=== PATIENT | female | born 1985 | race Caucasian/White ===

== ENCOUNTER 2017-03-09 15:49 | Inpatient (IN) | payer OTHER ==
[~2017-03-09] VITALS: Ht 170.2 cm; Wt 80.5 kg
[2017-03-20] VITALS (21 sets, daily range): BP systolic 104–130; BP diastolic 54–71; PULSE 62–111; TEMP 97.6–98.6
[2017-03-20] MEDS ORDERED: PRENATAL MVI (07:34)
[2017-03-20 07:45] LABS: BASO % 0.2 % (0.0-2.0); EOS # 0.1 (0.0-0.7); EOS % 1.1 % (0-4.0); GRAN # 6.3 (1.4-6.5); GRAN % 67.5 % (42.2-75.2); HEMOGLOBIN 12.6 g/dl (12.5-16.0); LYMPH # 2.4 (1.2-3.4); LYMPH % 25.5 % (20.0-51.0); MEAN CELL VOLUME 93 fl (80.0-100.0); MEAN CORPUSCULAR HEMOGLOBIN 32 pg (27.0-31.0); MEAN CORPUSCULAR HGB CONC 35 g/dl (33.0-37.0); MEAN PLATELET VOLUME 10.6 fl (7.4-10.4); MONO # 0.5 (0.1-0.6); MONO % 5.1 % (1.7-9.3); PLATELET COUNT 182 K/mm3 (130-400); RED BLOOD COUNT 3.94 M/mm3 (4.10-5.30); REDCELL DISTRIBUTION WIDTH-CV 14.2 % (11.5-14.5); WHITE BLOOD COUNT 9.4 K/mm3 (4.8-10.8)
[2017-03-20 07:49] LABS: HEMATOCRIT 36.5 % (37.0-47.0)
[2017-03-21 00:29] VITALS: BP 97/56; PULSE 58; TEMP 98
[2017-03-21 04:10] VITALS: BP 108/59; PULSE 57; TEMP 97.6
[2017-03-21 07:59] VITALS: BP 109/51; PULSE 64; TEMP 97.4
[2017-03-21 17:00] VITALS: BP 107/67; PULSE 60; TEMP 97.9
[2017-03-21 21:00] VITALS: BP 105/62; PULSE 70; TEMP 97.6
[2017-03-22 10:00] VITALS: BP 104/61; PULSE 74; TEMP 98.4
== END 2017-03-22 11:20 | disposition home or self-care (01) | DRG 775 ==
LOC: LDR 03-20 07:16 → OB 03-20 07:16 → LDR 03-20 10:54 → OB 03-20 13:30 → EDSTATUS 03-27 10:28 → LDR 03-27 10:31 → LDRO 03-27 15:31
PROVIDERS: Student in an Organized Health Care Education/Training Program
PROC: 10E0XZZ Delivery of Products of Conception, External Approach (ICD-10-PCS; principal; 2017-03-20)
PROC: 0KQM0ZZ Repair Perineum Muscle, Open Approach (ICD-10-PCS; 2017-03-20)
PROC: 3E033VJ Introduction of Other Hormone into Peripheral Vein, Percutaneous Approach (ICD-10-PCS; 2017-03-20)
DX: O62.3 Precipitate labor (principal); O26.843 Uterine size-date discrepancy, third trimester; O70.1 Second degree perineal laceration during delivery; O69.81X0 Labor and delivery complicated by cord around neck, without compression, not applicable or unspecified; Z3A.39 39 weeks gestation of pregnancy; Z37.0 Single live birth
CPT/HCPCS: J2590; J7120

== ENCOUNTER 2019-02-14 07:23 | Inpatient (IN) | payer OTHER ==
[~2019-02-14] VITALS: Ht 170.2 cm; Wt 85.5 kg
[2019-02-14] VITALS (39 sets, daily range): BP systolic 84–133; BP diastolic 46–75; PULSE 64–123; TEMP 98–98.6
[~2019-02-14 07:23] MED LIST: LOTRIMIN1% TP; PRENATAL MVI; TUMS500 MG; ZANTAC 7575 MG PO
--- NOTE | 2019-02-14 07:23 | NUR ---
Dr. Cabrera called unit to update RN on plan of care for patient. Made MD aware patient not yet to unit. See physician notification.
--- NOTE | 2019-02-14 07:28 | NUR ---
0728-G5L3 39[address] Barragan[address] ambulatory to LR5 for induction of labor. Assisted into gown and placed on EFM. 0742-IV to left wrist on first attempt, blood collected for lab, LR started. Patient states "I feel lightheaded." Head of bed back, Fan on, IVF bolus started. Cool wrag to forehead. Patient remains A&O x4. 0746-BP 81/46 maternal HR 67. IVF bolus continues. Assessment complete. 0753-BP 88/52 maternal HR 86. FHR remains reactive, no decels. FHR baseline 150bpm moderate variability. 0800-Consents reviewed and signed. Updated on plan of care.
[2019-02-14 08:48] LABS: BASO % 0.2 % (0.0-2.0); EOS # 0.1 (0.0-0.7); EOS % 0.9 % (0-4.0); GRAN # 8.5 (1.4-6.5); GRAN % 73.3 % (42.2-75.2); HEMOGLOBIN 12.3 g/dl (12.5-16.0); LYMPH # 2.4 (1.2-3.4); LYMPH % 20.3 % (20.0-51.0); MEAN CELL VOLUME 91 fl (80.0-100.0); MEAN CORPUSCULAR HEMOGLOBIN 30 pg (27.0-31.0); MEAN CORPUSCULAR HGB CONC 33 g/dl (33.0-37.0); MEAN PLATELET VOLUME 11.5 fl (7.4-10.4); MONO # 0.6 (0.1-0.6); MONO % 4.8 % (1.7-9.3); PLATELET COUNT 253 K/mm3 (130-400); RED BLOOD COUNT 4.06 M/mm3 (4.10-5.30); REDCELL DISTRIBUTION WIDTH-CV 14.3 % (11.5-14.5)
--- NOTE | 2019-02-14 08:50 | NUR ---
0850-Dr. Cabrera to patient room. Updates patient on plan of care. 0851-SVE 4-/-2 by . 0852-AROM by clear fluid noted.
--- NOTE | 2019-02-14 09:14 | NUR ---
0914-Patient of [facility] at this time and up to BB.
--- NOTE | 2019-02-14 10:23 | NUR ---
1023-Patient back on efm on BB. Reports mild irregular contractions while ambulating.
--- NOTE | 2019-02-14 10:48 | NUR ---
1048-Patient off EFM, on BB at this time.
--- NOTE | 2019-02-14 11:17 | NUR ---
1117-Dopplered patient at bedside to test EFM system.
--- NOTE | 2019-02-14 11:25 | NUR ---
1125-patient out to halls to ambulate.
--- NOTE | 2019-02-14 11:36 | NUR ---
1136-Patient back to BB, EFM in place, reactive FHR, maternal VSS, see flow record. 1140-adjust EFM.
--- NOTE | 2019-02-14 12:50 | NUR ---
1250-Dr. Cabrera on unit. Reviews strip. 1254-SVE by , Reviews plan of care with MD. Requests epidural and augmentation with pitocin once comfortable. Sylvain-JOSE Tinoco notified.
--- NOTE | 2019-02-14 13:20 | NUR ---
1320-Earnest in room. Patient sitting upright on bedside. Timeout complete. 1329-SS administered by Calixto Pacheco CRNA. VSS, see flow record. Patient denies symptoms or reaction or side effects. 1338-Patient WL. Updated on safety and side effects. 1351-Dr. Joiner updated, see physician notification. 1356-maternal BP 100/53, maternal HR 92 patient reports "I feel a little lightheaded." 10mg ephedrine given per protocola and orders from JOSE Tinoco. 1400-Pitocin per MD order and protocol, see EMAR. 1404-Patient BP 113/58 maternal HR 80. Denies symptoms of lightheadedness.
--- NOTE | 2019-02-14 14:20 | NUR ---
1420-Stone to DD, clear yellow urine return. SVE /-1, 1423-Dr. Tyson nurse Ayanna,TONYA updated, see physician notification.
--- NOTE | 2019-02-14 15:49 | NUR ---
1549-Deep Variable decel in FHR downt to 80bpm. Repositoned WL with peanut. 1552-Variable decel down to 95bpm. SVE 8/100/0, bloody show noted. Repositioned WR with peanut ball. 1602-Dr. Tyson nurse updated on patient, see physician notification.
--- NOTE | 2019-02-14 16:30 | NUR ---
1630-SVE C/+2. Updated patient on plan of care. 1633-Dr. Cabrera notified of patient C/+2, Stone d/c 350ml clear yellow urine. Set up for delivery. 1640-Dr. Cabrera to patient room. 1642-Patient begins pushing with MD at bedside through contraction. 1645-Spontaneous delivery of head, patient pushes additional push and immediately body follows. Viable male mouth and nose bulb suctioned by MD and placed on mothers abodmen. Cord clamped x2 and cut by FOB. Care of infant assumed by Fritz,RN nursery nurse. Apgars 8/9/9. 1st degre midline perineal laceration repaired by Dr. Cabrera. 1653-Spontaneous delivery of intact placenta by MD. Fundal massage firm. Lochia WNL, EBL 250ml. Pitocin bolus per MD orders and protocol. Eve care provided. Repositioned and updated on recovery plan of care.
[2019-02-15] VITALS: BP 106/44; PULSE 71; TEMP 97.9
[2019-02-15 05:15] VITALS: BP 101/63; PULSE 84; TEMP 98.1
[2019-02-15] MEDS ORDERED: IBU800 M1 PO (08:50)
[2019-02-15 09:15] VITALS: BP 104/60; PULSE 82; TEMP 97.6
--- NOTE | 2019-02-15 10:29 | NUR ---
Initial visit; Father thanked Security Lead for offering congratulations and God's blessings for the of his son. Mom was indisposed. Security Lead thanked family for choosing our hospital.
[2019-02-15 13:20] VITALS: BP 106/66; PULSE 89; TEMP 98.7
== END 2019-02-15 18:10 | disposition home or self-care (01) | DRG 807 ==
LOC: LDR 07:23 → OB 07:23 → LDR 11:37 → OB 23:25
PROVIDERS: ADMIT Student in an Organized Health Care Education/Training Program
PROC: 10E0XZZ Delivery of Products of Conception, External Approach (ICD-10-PCS; principal; 2019-02-14)
PROC: 0HQ9XZZ Repair Perineum Skin, External Approach (ICD-10-PCS; 2019-02-14)
PROC: 10907ZC Drainage of Amniotic Fluid, Therapeutic from Products of Conception, Via Natural or Artificial Opening (ICD-10-PCS; 2019-02-14)
PROC: 3E033VJ Introduction of Other Hormone into Peripheral Vein, Percutaneous Approach (ICD-10-PCS; 2019-02-14)
DX: O99.62 Diseases of the digestive system complicating childbirth (principal); Z37.0 Single live birth; O70.0 First degree perineal laceration during delivery; K21.9 Gastro-esophageal reflux disease without esophagitis; Z3A.39 39 weeks gestation of pregnancy; Z85.828 Personal history of other malignant neoplasm of skin
CPT/HCPCS: J2590; J2795; J7120

== ENCOUNTER → 2019-02-20 | Outpatient (CLI) | payer OTHER ==
[~2019-02-20] MED LIST changes: +IBU800 M1 PO
--- NOTE | 2019-02-20 13:50 | NUR ---
PT, Zoe Lowry, presents to walk-in clinic with six day old baby boy, Corey Lowry ([place]), for a evaluation and to be evaluated for yeast on the right nipple. Kostas was born on 02/14[birth year] and is Zeo's fourth baby. She has successfully breastfed her other kids. Pt was recently seen by a demolition specialist and diagnosed with a yeast infection on her chest in the cleavage area. She is currently using clotrimazole cream to the area BID, but does not feel it has made much difference. She denies it is itchy. She does have nipple pain on the right side and wants help evaluating if it is from poor latching or yeast. Redness noted to the areaola, latch looks appropriate and she denies pain with the feeding, but after the nipples hurt. Because of the redness and diagnosis of yeast, she is advised to contact Dr. Cabrera and discuss option for Klein's Nipple Cream. Pt is familiar with this medication and has used it in the past. Handouts regarding management of yeast sent to pt via email. After Kostas has a total weight gain of 1.76oz. POC: Contact Dr. Cabrera re: Klein's nipple Cream. Breastfeed ad ramona. F/U: Walk in clinic as desired. Questions invited and answered.
== END ==
LOC: OLC 10:49
DX: Z39.1 Encounter for care and examination of lactating mother (principal); Z71.89 Other specified counseling

== ENCOUNTER → 2019-03-06 | Outpatient (CLI) | payer OTHER ==
--- NOTE | 2019-03-06 11:27 | NUR ---
Pt, Zoe Lowry, present to walk-in clinic with three week old baby boy, "Arti Lowry to be evaluated for yeast of the nipples. Zoe has been Kostas without difficulty and she declines a weight check or at this time. Kostas does not appear to have any spots in his mouth or tongue that would be thrush as all white spots wipe away, with the exception of one on the roof of his mouth that is likely an Epstien Lorena. Pt has errythemia covering the entire areola bilaterally. She has been using Klein's Nipple cream and has had a two day dose of diflucan. She reports the internal breast pain has gone away but the areola rash is not improving. Pt advised to use OTC antifungal such as Lotramin AF TID, alternating with a vinegar/water rinse, and grapefruit extract each feeding. D/C the Klein's cream. Also encouraged to leave bra open to air as much as possible at home. Electronic handouts have previously been provided to pt via email re: tx for yeast. Pt continues to follow additional practices around the house to reduce/eliminate transmission of yeast. also noted to have raised bumps in diaper rash that are opening. Advised to use antifunal for this rash as well. Pt verbalizes understanding, questions invited and answered.
== END ==
LOC: LAC 10:46
DX: Z39.1 Encounter for care and examination of lactating mother (principal); Z71.89 Other specified counseling